=== PATIENT | female | born 1970 | race Caucasian/White ===

== ENCOUNTER 2018-09-13 08:02 | Day surgery (SDC) | payer OTHER ==
[2018-09-10 11:21] LABS: HEMATOCRIT 35.4 % (36.0-47.0); HEMOGLOBIN 11.8 g/dL (12.0-15.5); MEAN CORPUSCULAR HGB CONC 33.4 g/dL (32.0-36.0); MEAN CORPUSCULAR VOLUME 84 fl (80-97); PLATELET COUNT 418 10^3/uL (150-450); RED BLOOD COUNT 4.22 10^6/uL (3.72-5.28); WHITE BLOOD COUNT 11.6 10^3/uL (4.0-10.5)
[2018-09-10 11:37] LABS: ALANINE AMINOTRANSFERASE 18 U/L (9-52); ALBUMIN 4.2 g/dL (3.5-5.0); ALKALINE PHOSPHATASE 51 U/L (38-126); ANION GAP 8 (5-19); ASPARTATE AMINO TRANSFERASE 19 U/L (14-36); BILIRUBIN,DIRECT 0.2 mg/dL (0.0-0.4); BILIRUBIN,TOTAL 0.7 mg/dL (0.2-1.3); BLOOD UREA NITROGEN 11 mg/dL (7-20); CALCIUM 9.1 mg/dL (8.4-10.2); CARBON DIOXIDE 27 mmol/L (22-30); CHLORIDE 106 mmol/L (98-107); GLUCOSE 98 mg/dL (75-110); SODIUM 140.7 mmol/L (137-145); TOTAL PROTEIN 7.1 g/dL (6.3-8.2)
[~2018-09-13 08:02] MED LIST: CEFAZOLIN 2 GM/D5W RTU 2 GM/50 ML RTUPB IV PRN; LACTATED RINGERS 1000 ML IV PRN; LIDOCAINE 0.5% INJ-PF (5 MG/ML) 50 ML SDV SUBCUT PRN; NORMAL SALINE 1000 ML 1,000 ML IV PRN; RINGERS SOLUTION,LACTATED 1,000 ML IV PRN
[2018-09-13] MEDS ORDERED: CEFAZOLIN 2 GM/D5W RTU 2 GM/50 ML RTUPB IV ONE (08:04)
[2018-09-13] MEDS ORDERED: LIDOCAINE 0.5% INJ-PF (5 MG/ML) 50 ML SDV ONE (08:55)
[2018-09-13] MEDS ORDERED: FENTANYL CITRATE INJ/PF 250 MCG/5 ML AMPULE ONE (10:53)
[2018-09-13] MEDS ORDERED: MIDAZOLAM 2 MG/2 ML INJ ONE (10:54)
[2018-09-13] MEDS ORDERED: HYDROMORPHONE HCL INJ/PF 2 MG/ML AMPULE ONE (10:54)
[2018-09-13] MEDS ORDERED: PROPOFOL INJ 200 MG/20 ML VIAL IV ONE (10:54)
[2018-09-13] MEDS ORDERED: METHYLENE BLUE 50 MG/10 ML AMPULE ONE (11:04)
[2018-09-13] MEDS ORDERED: BUPIVACAINE HCL 0.25 % INJ/PF (2.5 MG/1 ML) 30 ML VIAL ONE (11:04)
[2018-09-13] MEDS ORDERED: MORPHINE SULFATE 10 MG/ML INJ IV PRN ×2 (11:55→14:10)
[2018-09-13] MEDS ORDERED: PROMETHAZINE HCL INJ 25 MG/1 ML VIAL IV PRN ×3 (11:55→14:10)
[2018-09-13] MEDS ORDERED: FENTANYL CITRATE INJ/PF 100 MCG/2 ML AMPUL IV PRN ×3 (11:55)
[2018-09-13] MEDS ORDERED: OXYCODONE-ACETAMINOPHEN 5-325 MG TABLET PO PRN ×3 (11:55→14:08)
[2018-09-13] MEDS ORDERED: DIPHENHYDRAMINE HCL 50 MG/ML VIAL IV PRN (11:55)
[2018-09-13] MEDS ORDERED: MEPERIDINE HCL/PF INJ 25 MG/1 ML DISP.SYRIN IV PRN (11:55)
--- NOTE | 2018-09-13 13:59 | OPERATIVE REPORT E ---
Operative Report NAME: REGGIE MENEZES : 1970 AGE: 47Y DATE OF SURGERY: 09/13/2018 ROOM: PREOPERATIVE DIAGNOSIS: 1. ABNORMAL UTERINE BLEEDING, UNRESPONSIVE TO PREVIOUS MEDICAL THERAPY. 2. MULTIPLE POLYPS IN FIBRO UTERINE CAVITY. 3. CHRONIC PELVIC PAIN. POSTOPERATIVE DIAGNOSIS: 1. ABNORMAL UTERINE BLEEDING, UNRESPONSIVE TO PREVIOUS MEDICAL THERAPY. 2. MULTIPLE POLYPS IN FIBRO UTERINE CAVITY. 3. CHRONIC PELVIC PAIN. OPERATION: 1. Robotic total laparoscopic hysterectomy. 2. Bilateral salpingectomy of the right and left fallopian tube with a history of bilateral tubal ligation. 3. Cystoscopy. SURGEON: Torrie Land MD ANESTHESIA: General. INTRAVENOUS FLUIDS: 1900 mL. URINE OUTPUT: 200 mL orange looking urine due to her history of taking Pyridium for bladder spasms. COMPLICATIONS: None. ESTIMATED BLOOD LOSS: 200 mL. SPECIMEN: Uterus, cervix, fallopian tubes remnants bilaterally. INDICATION: The patient is a 47-year-old with a history of 2 previous vaginal deliveries who presented with abnormal uterine bleeding, unresponsive to treatment with previous medical therapy with endometrial biopsy and ultrasound findings depicting multiple polyps into the endometrial cavity. Patient was attempted with multiple medical therapies without resolution of her symptoms. Patient desired definitive surgical management. Patient was counseled on the risks and the risks were discussed with the patient and included but not limited to bleeding, infection, injury to bowel or bladder, possible exploratory laparotomy, transfusion of packed red blood cells, and any other indicated procedures. The patient was consented, signed agreement and proceeded to the operating room. FINDINGS: Normal uterus. Slightly soft and boggy, consistent with adenomyosis, remnants of fallopian tubes bilaterally with fimbriated ends only. Normal ovaries bilaterally. PROCEDURE: The patient was taken to the operating room where general anesthesia was found to be adequate. She was prepped and draped in a normal sterile fashion. A vaginally heavy-weighted speculum was inserted. The cervix was visualized. The anterior lip of the cervix was grasped with a tenaculum. Two anchoring stitches at 3 and 9 o'clock were inserted and a Vcare manipulator was introduced and anchored within those stitches. The tenaculum was removed, Rosas catheter inserted. At this point, from above, a 10 mm horizontal supraumbilical incision was performed. Veress needle introduced and insufflation of the abdomen performed successfully. Trocar insertion successfully. Camera inserted and visualization of the intra-abdominal placement was confirmed. Survey of the abdomen revealed the above findings. At this point, the ureters were visualized and were both peristalsing and well outside of the surgical field at all times. The fimbriated end of the far right fallopian tube was grasped, cauterized, and transected along the mesosalpinx. The utero-ovarian ligament was cauterized and transected. The right round ligament was cauterized and transected all the way down to the level of the uterine vessels. Anterior leaf of the broad ligament was spread out in order to visualize the lower uterine segment and push the bladder away from the surgical field. The contralateral side was performed in a similar fashion. The fimbriated end was cauterized and transected along the mesosalpinx all of the way to the corneal end and then the utero-ovarian was cauterized and transected. The round ligament cauterized and transected all the way down to the uterine vessels using a vessel seal. At this point, once on the left and the anterior broad leaf of the ligament was cauterized and transected and then the bladder was pushed down away from the surgical field. At this point, an anterior colpotomy was performed and the green top of the Vcare was visualized. The posterior colpotomy also was performed. The green portion of the Vcare was visualized and connected from anterior to posterior and the colpotomy was performed successfully using the scissors bipolar, and at this point, the uterus and the remnants of the fallopian tubes, and cervix were completely freed from the vaginal mucosa after the complete colpotomy was performed in a circumferential manner and removed vaginally. At this point, the vaginal cuff was closed with using of the V-Loc suture in a running fashion. There were small oozing portions from the vaginal cuff that were cauterized with bipolar. After closure of the vaginal cuff, I asked that Anesthesia give methylene blue in preparation for the cystoscopy. At this point, the visualization of both of the ureters were confirmed and they were both peristalsing and away from the surgical field at all times. At this point, insertion of the cystoscope was performed from below. The bladder integrity and the trigone and the dome were intact with no foreign bodies or perforations or injury, whether crush or similar injury. The right ureter was visualized and strong efflux from both the right and the left ureters were visualized with strong orange to blue hue 0-Methylene blue from both strong efflux bilaterally. At this point, once confirmed, the cystoscopy was complete. The color of the urine was because the patient had Pyridium and also was given methylene blue so she had a combination of orange combined with blue discoloration of the urine. FloSeal was injected along the vaginal cuff for prophylactic measures from above. The patient tolerated the procedure well from the robotic standpoint. The cystoscope was removed. The laparoscopic instruments were removed. The trocars were removed. The supraumbilical incision was reapproximated with a UR6 in a [id number] stitch, reapproximating the fascia and then the skin was closed in a subcuticular fashion and a running fascial with 4-0 Monocryl. The right upper quadrant, right lower quadrant, and left lower quadrant incisions were reapproximated with 4-0 Monocryl as well. Using a sponge stick for the vaginal mucosa, it was inspected to make sure there were no lacerations and the sponge stick was used to remove any remnants of blood clots. Hemostasis obtained. There was no bleeding from the vaginal cuff. The patient tolerated the procedure well. All lap, sponge, and needle counts were correct x2. The patient was taken to the recovery room in stable condition. DICTATING PHYSICIAN: Torrie Land MD [id number] PHY#: [id number] ID: [id number] JOB#: [id number] ACCT: [id number] cc:Torrie Land >
[2018-09-13] MEDS ORDERED: OXYCODONE HCL IR 5 MG TABLET PO PRN (14:09)
[2018-09-13] MEDS ORDERED: ONDANSETRON HCL INJ/PF 4 MG/2 ML SDV IV PRN (14:10)
[2018-09-13] MEDS ORDERED: NEOSTIGMINE METHYLSULFATE 10 MG/10 ML VIAL ONE (14:52)
[2018-09-13] MEDS ORDERED: LIDOCAINE 2% INJ-PF (20 MG/ML) 2 ML AMPUL ONE (14:52)
[2018-09-13] MEDS ORDERED: GLYCOPYRROLATE 1 MG/5 ML VIAL ONE (14:52)
[2018-09-13] MEDS ORDERED: METOCLOPRAMIDE HCL INJ/PF 10 MG/2 ML SDV ONE (14:52)
[2018-09-13] MEDS ORDERED: KETOROLAC TROMETHAMINE 60 MG/2 ML SDV ONE (14:52)
[2018-09-13] MEDS ORDERED: DEXAMETHASONE SOD PHOSPHATE INJ 4 MG/1 ML VIAL ONE (14:52)
[2018-09-13] MEDS ORDERED: ROCURONIUM BROMIDE INJ 50 MG/5 ML VIAL IV ONE (14:52)
[2018-09-13] MEDS ORDERED: ONDANSETRON HCL INJ/PF 4 MG/2 ML SDV ONE (14:52)
[2018-09-13] MEDS ORDERED: NORMAL SALINE 1000 ML 600 ML IV ONE (15:00)
[2018-09-13 21:06] VITALS: BP 104/56
== END 2018-09-13 21:50 | disposition home or self-care (01) ==
LOC: OROUT 08:02 → 2N 16:39 → OROUT 21:50
PROVIDERS: ATTEND Obstetrics & Gynecology
DX: N93.9 Abnormal uterine and vaginal bleeding, unspecified (principal); N84.0 Polyp of corpus uteri; N80.0 Endometriosis of uterus; G89.29 Other chronic pain; R10.2 Pelvic and perineal pain; D25.9 Leiomyoma of uterus, unspecified
CPT/HCPCS: 58571; S2900; 36415; 80053; 81025; 840; 85027; 86850; 86900; 86901; 88307; J0690; J1100; J1170; J1885; J2250; J2405; J2704; J2710; J2765; J3010; J3490; Q9968